=== PATIENT | female | born 2000 | race Caucasian/White ===

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

== ENCOUNTER 2018-06-23 22:37 | Inpatient (IN) ==
[~2018-06-23 22:37] MED LIST changes: -*HR* FentaNYL (PF) 100 MCG/2 ML VIAL EP ONE; -*HR* FentaNYL (PF) 100 MCG/2 ML VIAL ONE; +*HR* Nalbuphine 10 MG/ML AMPUL IVP PRN; -Bupivacaine-MPF 0.25% 10 ML VIAL EP ONE; -Bupivacaine-MPF 0.25% 10 ML VIAL ONE; -Epidural Premix (fent/bupiv) 110 ML EP ONE; -Epidural Premix (fent/bupiv) 110 ML EP SCH; +Lidocaine 1% 20 ML MDV INFILT PRN; -Oxytocin 20 units/ LR 1000 mL 20 UNIT/1,000 ML BAG IVC SCH; -Ringers Solution, Lactated 1,000 ML IVC SCH; -Ringers Solution, Lactated 1,000 ML ONE
[2018-06-23] MEDS ORDERED: Ringers Solution, Lactated 1,000 ML IVC SCH (22:45)
--- NOTE | 2018-06-23 23:35 | OB/GYN History & Physical ---
Date of Encounter: 06/24/18 Time of Encounter: 23:31 Assessment and Plan (1) 37 weeks gestation of Current visit: Yes Status: Acute Initial SVE 6cm/90%/-1, a change from her appointment yesterday where she was 4- 5cm. Repeat SVE 7cm/90%/-1 NST reactive, FHR baseline Admit for Delivery Epidural when desired Anticipate . Dr. Felix aware of patient and plan. (2) Anemia affecting in third trimester Current visit: Yes Status: Acute Pt on iron. Awaiting CBC results. (3) Spontaneous onset of labor Current visit: No Status: Acute Admit for expectant managment. SVE 6cm upon arrival per RN. Epidural if requested. Anticipate . (4) Short interval between pregnancies affecting in third trimester, antepartum Current visit: Yes Status: Acute History of Present Illness Chief complaint: Contractions HPI: Ms. Fisher is a 18 y/o presenting at 37w3d with c/o contractions and back pain. Denies LOF or VB. Reports good FM. GBS Negative A positive Rubella positive HIV, hep B, Treponema negative GC/CL negative Past Med Surg Social Fam HX - Past Medical History Medical history: no medical history Psychiatric history: no psych history - Past Surgical History Surgical History: other Additional surgical history: wisdom teeth removal - Social History Smoking Status: Never smoker Smokeless Tobacco Status: No Alcohol use: none Drug use: none - Family History Mother Living Status: Still Living Hx Family Cardiac Disorders: No Hx Family Respiratory Disorders: No Hx Family Cancer: No Hx Family GI Disorders: No Hx Family Genitourinary Disorders: No Hx Family Endocrine Disorder: Yes (DIABETIC) Hx Family Musculoskeletal Disorders: No Hx Family Neuromuscular Disorders: No Hx Family Neurologic Disorders: No Hx Family HEENT Disorders: No Hx Family Autoimmune Disorders: No Hx Family Reproductive Disorders: No Hx Family Psychosocial Disorders: No Hx Family Medical Disorders: No Obstetrical History - Pregnancies : 2 Para: 1 Term: 1 : 0 Ab's: 0 Livin Medications and Allergies Ferrous Sulfate 325 mg PO DAILY 06/23/18 [History] Formula Tablet 1 tab PO DAILY 06/23/18 [History] Allergy/AdvReac Type Severity Reaction Status Date / Time No Known Allergies Allergy Verified 11/28/15 03:57 Review of System OB All systems PM: reviewed and no additional remarkable complaints except as stated Exam - Vital Signs Vital signs: Initial Vital Signs Pulse Resp BP 99 15 123/71 06/23/18 23:03 06/23/18 23:03 06/23/18 23:03 - Constitutional Constitutional: well developed, well nourished, no acute distress, average body habitus - HEENT HEENT: Mucus Membranes Moist - Neck Neck exam: full ROM - Lungs Respiratory exam: CTAB - Cardiovascular Cardiovascular exam: RRR - Abdomen Abdomen: Present: bowel sounds normal, gravid, non tender - Extremities Extremities exam: normal capillary refill, normal inspection Deep Tendon Reflex Grade: 2+ Normal - Cervix Dilation: 6 Effacement: 90 Station: -1 Results Result Diagrams: 06/23/18 23:19 All other labs normal. - VTE Reasons for not Prescribing Prophylaxis: Treatment not Indicated - Low risk for VTE
[2018-06-23] MEDS ORDERED: Bupivacaine-MPF 0.25% 10 ML VIAL EP ONE (23:42)
[2018-06-23] MEDS ORDERED: *HR* FentaNYL (PF) 100 MCG/2 ML VIAL EP ONE (23:42)
[2018-06-23] MEDS ORDERED: Epidural Premix (fent/bupiv) 110 ML EP SCH (23:45)
[2018-06-23] MEDS ORDERED: Lidocaine -MPF 1% 5 ML AMPUL ONE (23:45)
[2018-06-23] MEDS ORDERED: Levonorgestrel 52 MG IUD IY ONE (23:55)
--- NOTE | 2018-06-23 23:58 | Anesthesia Evaluation PreOp ---
Date of Encounter: 06/23/18 Time of Encounter: 23:56 - Past History Planned Operation: LEATHA Cardiac History: Denies any Significant Hx Pulmonary History: Denies Any Significant HX TELEPHONE REPAIRER History: Denies Any Significant HX Other Medical History: Denies Any Significant HX Anesthesia History: No Prior Anesthetic Complications (previous LEATHA x 1--no complications; never had GA; denies family h/o GA complications) : Yes Alcohol Use: none Drug use: none Medications and Allergies Ferrous Sulfate 325 mg PO DAILY 06/23/18 [History] Formula Tablet 1 tab PO DAILY 06/23/18 [History] Allergy/AdvReac Type Severity Reaction Status Date / Time No Known Allergies Allergy Verified 11/28/15 03:57 - Meds/Allergy Pre-op Review Medications Reviewed: Yes Allergies Reviewed: Yes Beta Blockers on Current Med List: No Anesthesia Exam 128/79, HR 96 O2 Sat Height 1.55 m Height 1.55 m Weight 59.4 kg Weight 59.4 kg Vital Signs Pulse Resp BP 99 15 123/71 06/23/18 23:03 06/23/18 23:03 06/23/18 23:03 NPO (# of Hours): solids >5 hr Pain Scale: 3 Pain Scale Used: Boswell-Palmer (Faces) - HEENT Pupil (Motor): Pupils equal Mallampati: II Teeth: Normal Oral Opening: Greater than 3 - TELEPHONE REPAIRER LOC: Oriented TELEPHONE REPAIRER Motor: Normal RUE, Normal LUE, Normal RLE, Normal LLE, Normal Face TELEPHONE REPAIRER Sensory: Normal: RUE, LUE, RLE, LLE, Face - Cardiac Rhythm: Regular Murmur: None - Pulmonary Breath Sounds: bilateral Clear Respiratory Effort: Symmetrical Anesthesia Assess/Plan ASA Score: 2 Level of consciousness: Cooperative, Oriented, Tranquil Anesthetic Plan: Epidural Autologous Blood: No Monitoring Plan: Standard Monitors Recovery Plan: Other
[2018-06-24 00:06] LABS: Basophils % 0.3 %; Eosinophils # 0.1 K/mcL (0.0-0.6); Eosinophils % 0.9 %; Hematocrit 31.7 % (35.3-44.9); Hemoglobin 10.2 g/dL (11.5-15.4); Immature Granulocytes % 1.6 % (0-4); Lymphocytes # 1.8 K/mcL (0.6-4.6); Lymphocytes % 15.1 %; Mean Corpuscular HGB Conc 32.2 g/dL (31.6-35.5); Mean Corpuscular Hemoglobin 25.8 pg (28.0-33.3); Mean Corpuscular Volume 80.3 fL (83.0-100.0); Mean Platelet Volume 11.1 fL (9.4-12.4); Monocytes # 1.4 K/mcL (0.0-1.3); Monocytes % 11.1 %; Neutrophils # 8.7 K/mcL (1.6-8.9); Platelet Count 215 K/mcL (140-400); Red Blood Count 3.95 M/mcL (3.82-4.97); Red Cell Distribution Width 13.3 % (11.5-14.5)
[2018-06-24 00:13] LABS: Amphetamine Screen,Urine Negative ng/mL (Cutoff=1000); Barbiturate Screen,Urine Negative ng/mL (Cutoff=200); Benzodiazepines Screen,Urine Negative ng/mL (Cutoff=200); Cannabinoid Screen,Urine Negative ng/mL (Cutoff = 50); Cocaine Screen,Urine Negative ng/mL (Cutoff= 300); Opiate Screen,Urine Negative ng/mL (Cutoff=300); Phencyclidine Screen,Urine Negative ng/mL (Cutoff=25)
--- NOTE | 2018-06-24 02:57 | OB Labor Progress Note ---
Date of Encounter: 06/24/18 Time of Encounter: 02:57 Labor Progress Note - Subjective Subjective: Pt reports increased contractions and intensity. - Cervix Cervix: 7cm/90%/-1 - Heart Tones Heart Tones: Category I - Interventions Interventions: AROM of moderate amount of clear fluid Epidural when desired Anticipate
--- NOTE | 2018-06-24 03:42 | Anesthesia Procedures ---
Addendum entered and electronically signed by Giacomo Raymundo CRNA 06/24/18 07:00: Delivery Date: 06/24/18 Delivery Time: 04:44 Original Note: Date of Encounter: 06/24/18 Time of Encounter: 03:40 Procedures: Anesthesia - Epidural/Spinal Patient ID/Chart reviewed: Yes Patient examined: Yes OB Eval: Gestational age: 37 weeks 3 days OB Eval: : 2 OB Eval: Hx Para: 1 OB Eval: Dilated at (cm): 7 OB Eval: Contractions: Non-stressed pattern Consent Obtained: Yes Supplemental Oxygen: None/Room Air Site Prep: Aseptic Technique, Sterile prep and drape, Povidone-Iodine 1% Patient position: upright Local Anesthetic: Lidocaine 1% Amount of Local Anesthetic used: 3 Touhy Needle Gauge: 18 Touhy Needle Depth (cm): 5 Catheter Depth at Skin (cm): 10 Test Dose (1.5% Lido + Epi): Volume given (mls): 5 Test Dose Result: Negative Loading Dose: 0.25% Marcaine (mls): 5 Loading Dose: Fentanyl (mcg): 100 Loading Dose Administered: Thru Catheter Infusion Med: 0.125% Bupivacaine w/ 2 mcg/ml Fentanyl Infusion Rate (mls/hr): 14 (demand bolus of 5mL q30min PRN) Catheter Secured in Place: Tegaderm, Tape Interspace Used: L3-L4 Loss of Resistance (JA): Yes Blood: No CSF: No Paresthesia: No Procedure: successful on 1st attempt; patient tolerated procedure well; VSS Vitals + FHT's: See Jackie BOWDEN's electronic records for VS entry.
[2018-06-24] MEDS ORDERED: Levonorgestrel 52 MG IUD IY ONE (03:46)
[2018-06-24] MEDS ORDERED: Oxytocin 20 units/ LR 1000 mL 20 UNIT/1,000 ML BAG IVC ONE ×2 (04:38→04:41)
--- NOTE | 2018-06-24 05:11 | OB/GYN Procedure Note ---
Delivery - Delivery Date: 06/24/18 Provider: Lena Velazquez Intrapartum events: none Delivery induction: none Delivery augmentation: rupture of membranes Delivery monitor: external FHT, external uterine Anesthesia: epidural Quantitated Blood Loss: 100 - Infant (s) Infant A Infant Delivery Date: 06/24/18 Infant Delivery Time: 04:44 Presentation: vertex Position: GREG Route of delivery: Gender: Male Viability: Viable Pounds: 6 Ounces: 12 Weight Gram: 3.14 kg at 1 minute: 8 at 5 mins: 9 Shoulder Dystocia: not encountered Specimens collected: cord blood Placenta: spontaneous Cord: nuchal cord, 3 umbilical vessels, nuchal reduced - Repair Episiotomy: none Laceration Description: None - Complications Delivery complications: none Delivery comments: Pt presented in active labor and progressed normally to over intact perineum for viable male weighing 6lbs 12 oz with apgars 8 at one minute and 9 at five minutes. After pulsations ceased the cord was clamped and cut and delivered spontaneous and intact. Following delivery of placenta a mirena IUD was placed manually to the level of the fundus. The strings were trimmed just inside the vaginal introitus. The Mirena consent was obtained prior to delivery after discussion of risks and benefits. No lacerations noted. EBL 100ml. Mother and baby stable in kangaroo care following . - Disposition Mom disposition: stable in LDR disposition: stable in LDR
[2018-06-24] MEDS ORDERED: Measles/Mumps/Rubella Vacc 0.5 ML VIAL SQ PRN (08:19)
[2018-06-24] MEDS ORDERED: Oxytocin 20 units/ LR 1000 mL 20 UNIT/1,000 ML BAG IVC SCH (08:19)
[2018-06-24] MEDS ORDERED: Ibuprofen 600 MG TABLET PO PRN (08:19)
[2018-06-24] MEDS ORDERED: Acetaminophen 325 MG TABLET PO PRN (08:19)
[2018-06-24] MEDS: Prenatal Vit/FA 1 EACH TABLET PO SCH (10:25)
[2018-06-25] MEDS: Prenatal Vit/FA 1 EACH TABLET PO SCH (07:59)
[2018-06-25 08:15] VITALS: BP 97/60
--- NOTE | 2018-06-25 10:46 | Discharge Summary ---
Date of Encounter: 06/25/18 Time of Encounter: 10:43 - Discharge Diagnosis (1) Vaginal delivery Priority: Primary Status: Acute Comments: Meeting all PP milestones, bottle feeding, pain well managed desires discharge. - Discharge Medications Prescriptions: Ibuprofen [Motrin] 600 mg PO Q6HR PRN #60 tablet PRN Reason: Cramping Docusate [Colace] 100 mg PO BID #30 capsule Ferrous Sulfate 325 mg PO DAILY #30 tablet Home Medications: Ferrous Sulfate 325 mg PO DAILY 06/23/18 [History] Formula Tablet 1 tab PO DAILY 06/23/18 [History] Acetaminophen [Tylenol] 650 mg PO Q6HR PRN tablet 06/25/18 [Rx] Docusate [Colace] 100 mg PO BID #30 capsule 06/25/18 [Rx] Ferrous Sulfate 325 mg PO DAILY #30 tablet 06/25/18 [Rx] Ibuprofen [Motrin] 600 mg PO Q6HR PRN #60 tablet 06/25/18 [Rx] Allergies/Adverse Reactions: Allergy/AdvReac Type Severity Reaction Status Date / Time No Known Allergies Allergy Verified 11/28/15 03:57 Data Procedures and tests throughout hospitalization: Laboratory Tests 06/23/18 06/23/18 22:37 23:19 WBC 12.2 H RBC 3.95 Hgb 10.2 L Hct 31.7 L MCV 80.3 L MCH 25.8 L MCHC 32.2 RDW 13.3 Plt Count 215 MPV 11.1 Immature Gran % 1.6 Seg Neutrophils % 71.0 Lymphocytes % 15.1 Monocytes % 11.1 Eosinophils % 0.9 Basophils % 0.3 Neutrophils # 8.7 Lymphocytes # 1.8 Monocytes # 1.4 H Eosinophils # 0.1 Basophils # 0.0 Urine Opiates Screen Negative Ur Barbiturates Screen Negative Ur Phencyclidine Scrn Negative Ur Amphetamines Screen Negative U Benzodiazepines Scrn Negative Urine Cocaine Screen Negative U Marijuana (THC) Screen Negative Ur Drug Screen Interp See Below Date of admission: 06/23/18 22:37 Primary care physician: PCP AYAD Discharging clinician: Sarah Liriano Anticipated date of discharge: 06/25/18 - Patient Status Disposition: Home, Self-Care Condition: Good Functional capacity at discharge: independent ambulation Overall status at discharge: patient is progressing back to baseline - Discharge Instructions Follow Up With: NONE,PCP [Primary Care Provider] - Lena Velazquez, CNM [Non-Partnered Physician] - - Diet and Activity Activity: resume usual activities as tolerated Diet: regular diet Hospital Course Reason for admission: IUP at term Delivery: Episiotomy: none Laceration: none Other procedures: none complications: none Discharge diagnosis: IUP at term delivered [place] baby: male Hospital course: Delivery - Delivery Date: 06/24/18 Provider: Lena Velazquez Intrapartum events: none Delivery induction: none Delivery augmentation: rupture of membranes Delivery monitor: external FHT, external uterine Anesthesia: epidural Quantitated Blood Loss: 100 - Infant (s) A Delivery Date: 06/24/18 Delivery Time: 04:44 Presentation: vertex Position: GREG Route of delivery: Gender: Male Viability: Viable Pounds: 6 Ounces: 12 Weight Gram: 3.14 kg at 1 minute: 8 at 5 mins: 9 Shoulder Dystocia: not encountered Specimens collected: cord blood Placenta: spontaneous Cord: nuchal cord, 3 umbilical vessels, nuchal reduced - Repair Episiotomy: none Laceration Description: None - Complications Delivery complications: none Delivery comments: Pt presented in active labor and progressed normally to over intact perineum for viable male weighing 6lbs 12 oz with apgars 8 at one minute and 9 at five minutes. After pulsations ceased the cord was clamped and cut and delivered spontaneous and intact. Following delivery of placenta a mirena IUD was placed manually to the level of the fundus. The strings were trimmed just inside the vaginal introitus. The Mirena consent was obtained prior to delivery after discussion of risks and benefits. No lacerations noted. EBL 100ml. Mother and baby stable in kangaroo care following . - Disposition Mom disposition: stable in PP and appropriate for discharge Time Attestation: Total time spent providing and/or coordinating discharge services: Time Spent: Less than 30 minutes Exam - Constitutional Vitals: Temp Pulse Resp BP Pulse Ox 97.6 F 63 16 97/60 98 06/25/18 08:14 06/25/18 08:14 06/25/18 08:14 06/25/18 08:14 06/25/18 04:30 General appearance IM: A&O X 3 - Respiratory Respiratory exam: Present: CTAB - GI/Abdominal GI/Abdominal exam IM: soft - Uterine Tone: Firm Uterus Position: At Umbilicus - Extremities Exam Extremities exam IM: Present: normal capillary refill, normal inspection - Neurological Exam Neurological exam: normal gait, oriented X3 - Psychiatric Additional comments: reports good mood
== END 2018-06-25 11:19 | disposition home or self-care (01) | DRG 560 ==
LOC: 1NENULAB → 1NENUOBS 06-24 08:29
PROVIDERS: ADMIT Registered Nurse; ATTEND Registered Nurse